=== PATIENT | male | born 1980 | race Caucasian/White ===

== ENCOUNTER 2016-08-06 08:34 | Emergency (ER) | payer MEDICAID ==
--- NOTE | 2016-08-06 09:07 | EDM.PDOC ---
{null, ED HPI GENERAL MEDICAL PROBLEM - General Chief Complaint: ENT Problem Stated Complaint: POSSIBLE STREP THROAT Time Seen by Provider: 08/06/16 09:00 Source of Information: Reports: Patient History Limitations: Reports: No Limitations - History of Present Illness INITIAL COMMENTS - FREE TEXT/NARRATIVE: patient comes emergency Department today with complaints of a sore throat that has been going on for the past 3 weeks. He states initially he had some fevers although he has not had any recently. He has not been seen for this. It hurts when he swallows. He does have some sinus congestion with clear drainage. No pain in his ears. Is no change in his voice. He does not have a cough. No chest pain or shortness of breath. No rash. Throat Pain Score (Numeric/FACES): 4 - Related Data Allergies Allergy/AdvReac Type Severity Reaction Status Date / Time No Known Allergies Allergy Verified 08/06/16 08:46 Home Meds: Home Meds . [No Known Home Meds] 08/06/16 [History] Past Medical History HEENT History: Reports: Sinusitis Cardiovascular History: Reports: None Respiratory History: Reports: None Gastrointestinal History: Reports: None Genitourinary History: Reports: None Musculoskeletal History: Reports: None Neurological History: Reports: None Psychiatric History: Reports: None Endocrine/Metabolic History: Reports: None Hematologic History: Reports: None Immunologic History: Reports: None Oncologic (Cancer) History: Reports: None Dermatologic History: Reports: None - Infectious Disease History Infectious Disease History: Reports: None - Past Surgical History Head Surgeries/Procedures: Reports: None Social & Family History - Family History Family Medical History: Noncontributory - Tobacco Use Smoking Status *Q: Never Smoker - Caffeine Use Caffeine Use: Reports: Energy Drinks, Soda - Recreational Drug Use Recreational Drug Use: No ED ROS ENT - Review of Systems Review Of Systems: See Below Constitutional: Reports: No Symptoms GI/Abdominal: Reports: No Symptoms : Reports: No Symptoms Musculoskeletal: Reports: No Symptoms Skin: Reports: No Symptoms Neurological: Reports: No Symptoms Psychiatric: Reports: No Symptoms Hematologic/Lymphatic: Reports: No Symptoms ED EXAM, ENT - Physical Exam Exam: See Below Exam Limited By: No Limitations General Appearance: Alert, WD/WN, No Apparent Distress Eye Exam: Bilateral Eye: EOMI, Normal Inspection, PERRL Ears: Normal External Exam, Normal Canal, Hearing Grossly Normal, Normal TMs Nose: Clear Rhinorrhea, Nasal Swelling, Other (turbinates are pale and boggy and swollen. Very narrow nasal passages. Clear rhinorrhea present in the sinuses.) Mouth/Throat: Normal Inspection, Normal Gums, Normal Lips, Throat Pain, Other ( posterior pharynx with pink salmon colored vesicles as well as cobblestoning consistent with postnasal drip. There is also a moderate amount of very thick stringy mucus from the postnasal pharynx. Clear mucus.). No: Drooling, Lip Ulcers, Muffled Voice, Oral Ulcers, Peritonsillar Mass, Pharyngeal Erythema, Throat Swelling, Tongue Swelling, Tonsillar Erythema, Tonsillar Exudates, Tonsillar Swelling, Uvular Deviation, Uvular Edema Head: Atraumatic, Normocephalic Neck: Normal Inspection, Supple, Non-Tender, Full Range of Motion. No: Lymphadenopathy (L), Lymphadenopathy (R) Respiratory/Chest: No Respiratory Distress, Lungs Clear, Normal Breath Sounds, No Accessory Muscle Use Cardiovascular: Normal Peripheral Pulses, Regular Rate, Rhythm, No Murmur, No Rub GI/Abdominal: Normal Bowel Sounds, Soft, Non-Tender (Male) Exam: Deferred Rectal (Males) Exam: Deferred Back: Normal Inspection Extremities: Normal Inspection, Normal Capillary Refill Neurological: Alert, Oriented, CN II-XII Intact Psychiatric: Normal Affect Skin: Warm, Dry, Intact, Normal Color, No Rash Course - Vital Signs Last Recorded V/S: Last Vital Signs Temp 36.7 C 08/06/16 08:45 Pulse 70 08/06/16 08:45 Resp 18 08/06/16 08:45 BP 124/78 08/06/16 08:45 Pulse Ox 100 08/06/16 08:45 - Orders/Labs/Meds Orders: Active Orders 24 hr Category Date Time Status STREP SCRN A RAPID W CULT CONF [RM] Stat Lab 08/06/16 08:45 Received - Re-Assessments/Exams Free Text/Narrative Re-Assessment/Exam: 08/06/16 09:32 I explained the negative stretching to the patient. I think that this is most likely coming from the sinuses. He does complain of rather chronic nasal congestion and does breathe out of his mouth quite a bit. I do not find any acute pathology. We will treat it conservatively and we primarily treating his sinuses postnasal drip. Discharge instructions as below were explained to patient he was comfortable with this plan and his questions were answered. Departure - Departure Time of Disposition: 09:18 Disposition: Home, Self-Care 01 Clinical Impression: Sore throat, Nasal sinus congestion, Rhinorrhea - Discharge Information Instructions: Sore Throat, [id number], Sinusitis, Adult, [id number] Forms: ED Department Discharge Additional Instructions: Increase humidification in the house. Nasal saline rinse twice aday. Netti Pot or other OTC therapies. 10 minutes later Afrin Afrin 2 sprays each nostril twice daily, FOR NO MORE THAN @ DAYS!!!!!!!!!!!!! 10 mins later. Flonase 1 sprays to each nostril once a twice day for a week and then 1 spray each nostril once a day. Warm saline salt water gargles as needed for sore throat. Spoon full of honey as well for the sore throat. Tylenol and or ibuprofen as needed for pain. Return to the ED if new or worsening symptoms. Recheck with primary care provider in the next week if not improving. - My Orders Last 24 Hours: My Active Orders 08/06/16 08:45 STREP SCRN A RAPID W CULT CONF [RM] Stat - Assessment/Plan Last 24 Hours: My Active Orders 08/06/16 08:45 STREP SCRN A RAPID W CULT CONF [RM] Stat Assessment:: Sore throat, negative exam and negative strep. Rhinorrhea SInusitis Plan: Increase humidification in the house. Nasal saline rinse twice aday. Netti Pot or other OTC therapies. 10 minutes later Afrin Afrin 2 sprays each nostril twice daily, FOR NO MORE THAN @ DAYS!!!!!!!!!!!!! 10 mins later. Flonase 1 sprays to each nostril once a twice day for a week and then 1 spray each nostril once a day. Warm saline salt water gargles as needed for sore throat. Spoon full of honey as well for the sore throat. Tylenol and or ibuprofen as needed for pain. Return to the ED if new or worsening symptoms. Recheck with primary care provider in the next week if not improving. }
[2016-08-06 09:37] VITALS: BP 124/78
== END 2016-08-06 09:35 | disposition home or self-care (01) ==
LOC: DL.ED 08:34
DX: J02.9 Acute pharyngitis, unspecified (principal); R09.81 Nasal congestion; J34.89 Other specified disorders of nose and nasal sinuses
CPT/HCPCS: 87081; 87430; 99283

== ENCOUNTER 2021-02-27 08:47 | Emergency (ER) | payer MEDICAID, OTHER ==
[2021-02-27 09:23] VITALS: BP 126/106; PULSE 115
[2021-02-27 09:55] LABS: CORONAVIRUS COVID-19 NAA NEGATIVE (NEGATIVE)
[2021-02-27] MEDS ORDERED: Ondansetron 4 MG Tab.DIS PO ONE (10:10)
--- NOTE | 2021-02-27 10:15 | EDM.PDOC ---
ED HPI GENERAL MEDICAL PROBLEM - General Chief Complaint: General Stated Complaint: SINUS INFECTION / COUGH Time Seen by Provider: 02/27/21 10:05 Source of Information: Reports: Patient History Limitations: Reports: No Limitations - History of Present Illness INITIAL COMMENTS - FREE TEXT/NARRATIVE: This 40 yo male patient reports to the Ed with generalized body aches, nausea, v omiting and diarrhea. The patient has been attempting to take OTC medications for temporary symptom relief. The patient reports he does feel a little better after taking Pepto, but is wondering if he has COVID or the flu. Duration: Day(s):, Constant Location: Reports: Generalized Quality: Reports: Other Severity: Moderate Improves with: Reports: None Worsens with: Reports: None Context: Reports: Other Associated Symptoms: Reports: Fever/Chills, Nausea/Vomiting, Weakness Treatments [employer]: Reports: Other Medication(s) - Related Data Allergies Allergy/AdvReac Type Severity Reaction Status Date / Time No Known Allergies Allergy Verified 02/27/21 09:14 Home Meds: Home Meds . [No Known Home Meds] 08/06/16 [History] Past Medical History - Past Health History Medical/Surgical History: Denies Medical/Surgical History HEENT History: Reports: Sinusitis Cardiovascular History: Reports: None Respiratory History: Reports: None Gastrointestinal History: Reports: None Genitourinary History: Reports: None Musculoskeletal History: Reports: None Neurological History: Reports: None Psychiatric History: Reports: None Endocrine/Metabolic History: Reports: None Hematologic History: Reports: None Immunologic History: Reports: None Oncologic (Cancer) History: Reports: None Dermatologic History: Reports: None - Infectious Disease History Infectious Disease History: Reports: None - Past Surgical History Head Surgeries/Procedures: Reports: None Social & Family History - Family History Family Medical History: No Pertinent Family History - Tobacco Use Tobacco Use Status *Q: Never Tobacco User - Caffeine Use Caffeine Use: Reports: Energy Drinks, Soda ED ROS GENERAL - Review of Systems Review Of Systems: Comprehensive ROS is negative, except as noted in HPI. ED EXAM, GENERAL - Physical Exam Exam: See Below Exam Limited By: No Limitations General Appearance: Alert, WD/WN, Moderate Distress Eye Exam: Bilateral Eye: EOMI, Normal Inspection, PERRL Ears: Normal External Exam, Normal Canal, Hearing Grossly Normal, Normal TMs Nose: Normal Inspection, Normal Mucosa, No Blood Throat/Mouth: Normal Inspection, Normal Lips, Normal Teeth, Normal Gums, Normal Oropharynx, Normal Voice, No Airway Compromise Head: Atraumatic, Normocephalic Neck: Normal Inspection, Supple, Non-Tender, Full Range of Motion Respiratory/Chest: No Respiratory Distress, Lungs Clear, Normal Breath Sounds, No Accessory Muscle Use, Chest Non-Tender Cardiovascular: Normal Peripheral Pulses, Regular Rate, Rhythm, No Edema, No Gallop, No JVD, No Murmur, No Rub GI/Abdominal: Normal Bowel Sounds, Soft, Non-Tender, No Organomegaly, No Distention, No Abnormal Bruit, No Mass (Male) Exam: Deferred Rectal (Males) Exam: Deferred Back Exam: Normal Inspection, Full Range of Motion, NT Extremities: Normal Inspection, Normal Range of Motion, Non-Tender, Normal Capillary Refill, No Pedal Edema Neurological: Alert, Oriented, CN II-XII Intact, Normal Cognition, Normal Gait, Normal Reflexes, No Motor/Sensory Deficits Psychiatric: Normal Affect, Normal Mood Skin Exam: Warm, Dry, Intact, Normal Color, No Rash Lymphatic: No Adenopathy Course - Vital Signs Last Recorded V/S: Last Vital Signs Temp 98 F 02/27/21 09:14 Pulse 115 H 02/27/21 09:14 Resp 20 02/27/21 09:14 BP 126/106 H 02/27/21 09:14 Pulse Ox 95 02/27/21 09:14 - Orders/Labs/Meds Labs: Laboratory Tests 02/27/21 Range/Units 09:08 Influenza Type A RNA Negative (NEGATIVE) Influenza Type B RNA Negative (NEGATIVE) SARS-CoV-2 RNA (JERRY) Negative (NEGATIVE) Meds: Medications Discontinued Medications Generic Name Dose Route Start Last Admin Trade Name Freq PRN Reason Stop Dose Admin Ondansetron HCl 4 mg 02/27/21 10:10 02/27/21 10:18 Ondansetron 4 Mg Tab.Dis PO 02/27/21 10:11 4 mg ONETIME ONE Administration - Re-Assessments/Exams Free Text/Narrative Re-Assessment/Exam: 02/27/21 10:24 The patient was advised of the lab results and offered IV fluids and Zofran for nausea. The patient did not want IV fluids, but would like his nausea treated. Departure - Departure Time of Disposition: 10:12 Disposition: Home, Self-Care 01 Condition: Fair Clinical Impression: Gastroenteritis - Discharge Information *PRESCRIPTION DRUG MONITORING PROGRAM REVIEWED*: Not Applicable *COPY OF PRESCRIPTION DRUG MONITORING REPORT IN PATIENT TOOTIE: Not Applicable Instructions: Viral Gastroenteritis, Adult, [id number] Forms: ED Department Discharge Care Plan Goals: The patient was advised of the examination and lab results during the visit. The patient was given an oral dose of Zofran while in the ED. The patient was discharged with a script for Zofran (4 mg) #20 to take 1 by mouth every 6 hours as needed for nausea. The patient was encouraged to stick to a BRAT diet (bananas, rice, applesauce and toast) with small frequent sips of fluid. If the patient has any additional symptoms or concerns, the patient should either return to the emergency department or follow-up with his primary care facility. Sepsis Event Note (ED) - Evaluation Sepsis Screening Result: No Definite Risk - Focused Exam Vital Signs: Vital Signs Temp Pulse Resp BP Pulse Ox 02/27/21 09:14 98 F 115 H 20 126/106 H 95
== END 2021-02-27 10:20 | disposition home or self-care (01) ==
LOC: DL.ED 08:47
DX: K52.9 Noninfective gastroenteritis and colitis, unspecified (principal); Z20.822 Contact with and (suspected) exposure to COVID-19
CPT/HCPCS: 0240U; 99284; A9270

== ENCOUNTER 2023-09-07 15:47 | Emergency (ER) | payer SELFPAY ==
[2023-09-07 16:10] VITALS: BP 118/69; PULSE 84
[2023-09-07] MEDS: Ketorolac 30 MG/ML SDV IVPUSH ONE (16:27)
[2023-09-07] MEDS: Orphenadrine 60 MG/2 ML Inj IV ONE (16:29)
== END 2023-09-07 18:16 | disposition home or self-care (01) ==
LOC: DL.ED 15:47
DX: S39.012A Strain of muscle, fascia and tendon of lower back, initial encounter (principal); X58.XXXA Exposure to other specified factors, initial encounter
CPT/HCPCS: 72131; 96374; 96375; 99283; J1885; J2360